=== PATIENT | male | born 1970 | race Caucasian/White ===

== ENCOUNTER 2019-06-12 01:41 | Inpatient (IN) | payer BC, OTHER ==
[~2019-06-12] VITALS: Ht 175.3 cm; Wt 85.3 kg
[2019-06-12 01:43] VITALS: BP 122/95
[2019-06-12] MEDS ORDERED: DORYX MPC120 MG PO (01:47)
[2019-06-12] MEDS ORDERED: AMOXICILLIN PO (01:48)
[2019-06-12 02:49] LABS: ANION GAP 10 mmol/L (7-16); BUN 23 mg/dL (7-18); CALCIUM 9.3 mg/dL (8.5-10.1); CHLORIDE 97 mmol/L (98-107); CO2 25 mmol/L (21-32); CREATININE 1.5 mg/dL (0.7-1.3); GLUCOSE 87 mg/dL (74-106); POTASSIUM 3.6 mmol/L (3.5-5.1); SODIUM 132 mmol/L (136-145)
[2019-06-12 02:52] LABS: HEMATOCRIT 50.6 % (42.0-52.0); HEMOGLOBIN 16.8 gm/dL (14.0-18.0); MCH 30.1 pg (26.0-34.0); MCHC 33.2 g/dL (28.0-37.0); MCV 90.6 fL (80.0-100.0); PLATELET COUNT 181 thou/uL (150-400); RBC 5.58 mil/uL (4.50-6.00); RDW 14.2 % (10.5-14.5); WBC 5.2 thou/uL (4.0-11.0)
[2019-06-12 02:58] LABS: TROPONIN-I <0.06 ng/mL (<0.06)
[2019-06-12 03:40] LABS: ABSOLUTE NEUTROPHILS 2.7 thou/uL (1.4-8.2); ATYPICAL LYMPHS 2 %; METAMYELOCYTES 1 %
[2019-06-12 03:41] LABS: LARGE PLATELETS OCCASIONAL
[2019-06-12 04:07] VITALS: BP 122/95
[2019-06-12 04:23] VITALS: BP 126/83
--- NOTE | 2019-06-12 05:39 | NUR ---
PATIENT IS A NEW ADMISSION TO THE UNIT THIS SHIFT. HE ARRIVED VIA CART AND WAS ABLE TO TRANSFER TO THE BED WITH ASSISTANCE. FULLY ALERT AND ORIENTED, PATIENT IS ABLE TO FULLY CONTRIBUTE TO HIS ADMISSION AND CALL APPROPRIATELY FOR NEEDS. OXYGEN STARTED DUE TO LOW OXYGEN SATURATIONS AND ASSESSMENT. PATIENT IS RELUCTANT TO BE CONSIDERED A HIGH FALL RISK, BUT ADMITS THAT HE IS "WEAK" AND "DIZZY AT TIMES". NURSE TO COMPLETE ADMISSION AND INITIATE PLAN OF CARE.
[2019-06-12 07:44] VITALS: BP 123/76
[2019-06-12 15:43] VITALS: BP 127/81
--- NOTE | 2019-06-12 16:25 | EKG ---
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 : 1970 Requested By: Carlos Alberto Rea Order Number: [id number] MD: Rene Cardoza Measurements Intervals [place] Rate: 77 P: 67 MD: 159 QRS: -49 QRSD: 101 T: 60 QT: 381 QTc: 432 Interpretive Statements Sinus rhythm Left axis deviation Baseline wander in lead(s) V2 Nonspecific ST-T wave abnormalities No previous ECG available for comparison Electronically Signed On 06-12-2019 16:24:56 [employer] LAPPER by Rene Cardoza [email or web address] <ELECTRONICALLY SIGNED> By: Rene Cardoza MD 06/12/19 1624 9 9 Rene Cardoza MD /EPI
--- NOTE | 2019-06-12 18:51 | NUR ---
A/O, calm and cooperative. vss, afebrile. Complained of headache, but refused pain medication and stated that it was not new; no n/v, no vomiting.
--- NOTE | 2019-06-12 19:35 | NUR ---
The patient had a walk in the hallway, refused to be followed by the staff, after assessing the patient, the patient was not steady, the staff let the patient walked in the hallway independently. The staff is not sure of the patient's status at night, but the night nurse, Silvino insisted the staff change the status of High Fall Risk into " Non-high fall risk". the staff did, but the staff reminded Silvino that the patient's status at night might be unstable.
[2019-06-12 20:09] VITALS: BP 121/78
[2019-06-13 00:03] VITALS: BP 122/75
[2019-06-13 05:35] LABS: HEMATOCRIT 46.7 % (42.0-52.0); HEMOGLOBIN 15.6 gm/dL (14.0-18.0); MCH 30.1 pg (26.0-34.0); MCHC 33.3 g/dL (28.0-37.0); MCV 90.5 fL (80.0-100.0); PLATELET COUNT 164 thou/uL (150-400); RBC 5.16 mil/uL (4.50-6.00); RDW 14.1 % (10.5-14.5); WBC 3.8 thou/uL (4.0-11.0)
[2019-06-13 05:52] LABS: ALBUMIN 3.1 g/dL (3.4-5.0); CALCIUM 8.4 mg/dL (8.5-10.1); CREATININE 1.3 mg/dL (0.7-1.3); MAGNESIUM 1.9 mg/dL (1.8-2.4); POTASSIUM 3.7 mmol/L (3.5-5.1); TOTAL BILIRUBIN 0.4 mg/dL (<0.1-1.0); TOTAL PROTEIN 6.8 g/dL (6.4-8.2)
[2019-06-13 08:00] VITALS: BP 119/77
[2019-06-13 09:54] LABS: ABSOLUTE NEUTROPHILS 1.4 thou/uL (1.4-8.2); ATYPICAL LYMPHS 5 %
[2019-06-13 09:55] LABS: ANISOCYTOSIS SLIGHT
[2019-06-13 12:24] VITALS: BP 119/77
== END 2019-06-13 13:17 | disposition home or self-care (01) | DRG 194 ==
LOC: ER 01:41 → EROBS 03:28 → 3W 03:28
PROVIDERS: Emergency Medicine; Internal Medicine; ADMIT Internal Medicine
DX: J18.9 Pneumonia, unspecified organism (principal); N17.9 Acute kidney failure, unspecified; Z94.81 Bone marrow transplant status; Z90.81 Acquired absence of spleen; Z85.72 Personal history of non-Hodgkin lymphomas; Z92.21 Personal history of antineoplastic chemotherapy; Z92.3 Personal history of irradiation; Z79.899 Other long term (current) drug therapy
CPT/HCPCS: 10879

== ENCOUNTER 2019-12-05 21:21 | Emergency (ER) | payer BC, OTHER ==
[~2019-12-05] VITALS: Ht 172.7 cm; Wt 81.7 kg
[~2019-12-05 21:21] MED LIST: AMOXICILLIN PO; DORYX MPC120 MG PO
[2019-12-05] MEDS ORDERED: BACTRIM DS TAB1 EACH PO (22:32)
[2019-12-05] MEDS ORDERED: KEFLEX500 M1 PO (22:32)
[2019-12-05] MEDS ORDERED: MOBIC15 MG PO (22:32)
[2019-12-05 22:33] VITALS: BP 166/97
== END 2019-12-05 22:40 | disposition home or self-care (01) ==
LOC: ER 21:21
DX: L02.212 Cutaneous abscess of back [any part, except buttock and flank] (principal); Z90.89 Acquired absence of other organs; M54.9 Dorsalgia, unspecified; Z85.72 Personal history of non-Hodgkin lymphomas; Z98.890 Other specified postprocedural states

== ENCOUNTER 2020-08-28 21:23 | Emergency (ER) | payer BC ==
[~2020-08-28] VITALS: Ht 172.7 cm; Wt 81.7 kg
[~2020-08-28 21:23] MED LIST changes: +BACTRIM DS TAB1 EACH PO; +KEFLEX500 M1 PO; +MOBIC15 MG PO
[2020-08-28 21:50] LABS: ABSOLUTE NEUTROPHILS 3.6 thou/uL (1.4-8.2); BASOPHILS 1.2 % (0.0-2.0); EOSINOPHILS 3.4 % (0.0-3.0); HEMATOCRIT 48.8 % (42.0-52.0); HEMOGLOBIN 16.3 gm/dL (14.0-18.0); LYMPHOCYTES 40.9 % (24.0-44.0); MCH 29.8 pg (26.0-34.0); MCHC 33.3 g/dL (28.0-37.0); MCV 89.4 fL (80.0-100.0); MONOCYTES 12.5 % (1.0-8.0); PLATELET COUNT 201 thou/uL (150-400); RBC 5.46 mil/uL (4.50-6.00); RDW 13.8 % (10.5-14.5); WBC 8.6 thou/uL (4.0-11.0)
[2020-08-28 22:04] LABS: ANION GAP 10 mmol/L (7-16); BUN 29 mg/dL (7-18); CALCIUM 9.3 mg/dL (8.5-10.1); CHLORIDE 102 mmol/L (98-107); CO2 27 mmol/L (21-32); CREATININE 1.8 mg/dL (0.7-1.3); GLUCOSE 96 mg/dL (74-106); POTASSIUM 3.9 mmol/L (3.5-5.1); SODIUM 139 mmol/L (136-145)
[2020-08-28 22:14] LABS: TROPONIN-I <0.06 ng/mL (<0.06)
[2020-08-28 22:41] VITALS: BP 126/90
--- NOTE | 2020-08-29 07:07 | EKG ---
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 : 1970 Requested By: Sravan Leblanc Order Number: [id number] MD: Moreno Aguilera Measurements Intervals [place] Rate: 59 P: 63 DC: 187 QRS: 80 QRSD: 92 T: 63 QT: 404 QTc: 401 Interpretive Statements Sinus rhythm Probable left atrial enlargement RSR' in V1 or V2, probably normal variant Compared to ECG 06/12/2019 02:00:44 RSR' in V1 or V2 now present Left-axis deviation no longer present ST (T wave) deviation no longer present Electronically Signed On 08-29-2020 7:07:17 CDT by Moreno Aguilera [email or web address] <ELECTRONICALLY SIGNED> By: Moreno Aguilera MD, FACC 08/29/20 [id number] 33 Moreno Aguilera MD, [facility] /EPI
== END 2020-08-28 22:42 | disposition admitted as inpatient to this hospital (09) ==
LOC: ER 21:23
PROVIDERS: Nurse Practitioner
DX: R07.89 Other chest pain (principal)